=== PATIENT | male | born 1955 | race Caucasian/White ===

== ENCOUNTER 2017-10-25 09:14 | Outpatient (CLI) | payer MEDICAID, SELFPAY ==
[2017-10-25 10:17] LABS: HGB 15.2 g/dL (13.5-17.5); Mean Corp. HGB Concentration 35.3 g/dL (32.0-36.0); Mean Corpuscular Hemoglobin 31.3 pg (27.0-33.0); Mean Corpuscular Volume 88.5 fL (80-95); Mean Platelet Volume 10.1 fL (8.0-11.0); Platelet Count 195 x1000/uL (130-400); RBC 4.86 m/cumm (4.50-6.00); White Blood Cell Count 6.24 k/cumm (4.4-10.8)
[2017-10-25 11:21] LABS: Hemoglobin A1C 4.9 % (4.5-6.2)
[2017-10-25 11:30] LABS: ALT 36 U/L (12-78); AST 20 U/L (15-37); Albumin 4.1 g/dL (3.4-5.0); Alkaline Phosphatase 81 U/L (46-116); Anion Gap 7.9 mmol/L (3-11); BUN 14 mg/dL (7-18); Bilirubin, Total 0.7 mg/dL (0.2-1.0); CO2 26.1 mmol/L (21.0-32.0); CREATININE 0.99 mg/dL (0.70-1.30); Calcium 8.8 mg/dL (8.5-10.1); Chloride 105 mmol/L (98-107); Glucose 100 mg/dL (70-100); Potassium 4.7 mmol/L (3.5-5.1); Sodium 139 mmol/L (136-145); TSH (W/Ref FT4) 1.02 uIU/mL (0.358-3.74); Total Protein 6.9 g/dL (6.4-8.2); Vitamin B12 412 pg/mL (193-986)
[2017-10-26 13:07] LABS: Lyme Ab w Rflx to Lyme Confirm Negative
[2017-10-26 23:11] LABS: Anaplasma phagocytophilum Negative (Negative); B. miyamotoi PCR Negative (Negative); Babesia divergens/MO-1 Negative (Negative); Babesia duncani Negative (Negative); Babesia microti Negative (Negative); Ehrlichia chaffeensis Negative (Negative); Ehrlichia ewingii/canis Negative (Negative); Ehrlichia muris eauclairensis Negative (Negative)
== END 2017-10-25 09:34 ==
PROVIDERS: PCP Family Medicine; Visit Provider Family Medicine
DX: G72.9 Myopathy, unspecified (principal); R11.10 Vomiting, unspecified; G62.9 Polyneuropathy, unspecified
CPT/HCPCS: 36415; 80053; 85027; 82607; 83036; 84443; 86618; 87798

== ENCOUNTER 2018-10-29 10:55 | Outpatient (CLI) | payer MEDICAID, SELFPAY ==
--- NOTE | 2018-10-29 10:00 | DI.RAD_ITS ---
SYMPTOM/DIAGNOSIS: LT KNEE PAIN, M25.562 LEFT KNEE: Medial joint space narrowing is demonstrated. There are mild hypertrophic changes. There is no evidence of a joint effusion. There has been no significant interval change when compared with the prior study of 11/02/15. SUMMARY: Findings consistent with mild to moderate DJD, unchanged when compared with the previous examination.
== END 2018-10-29 11:15 ==
PROVIDERS: PCP Family Medicine; Visit Provider Family Medicine
DX: M25.562 Pain in left knee (principal); M17.12 Unilateral primary osteoarthritis, left knee
CPT/HCPCS: 73562

== ENCOUNTER 2018-10-30 00:58 | Outpatient (CLI) | payer MEDICAID, SELFPAY ==
--- NOTE | 2018-10-30 08:19 | DI.RAD_ITS ---
EXAM: XR CHEST 2V PA LATERAL CLINICAL HISTORY: cough. TECHNIQUE: 2D digital imaging was performed. COMPARISON: None. FINDINGS: LUNGS: Clear. No pleural abnormality seen. HEART: Normal. MEDIASTINUM: Normal. OTHER FINDINGS:Normal. IMPRESSION: No acute pulmonary findings.
== END 2018-10-30 01:18 ==
PROVIDERS: PCP Family Medicine; Visit Provider Family Medicine
DX: R05 Cough (principal)
CPT/HCPCS: 71046

== ENCOUNTER 2018-12-07 18:12 | Emergency (ER) | payer MEDICAID, SELFPAY ==
[2018-12-07] VITALS (8 sets, daily range): BP systolic 109–156; BP diastolic 62–94; PULSE 86–91; RESP 18–32; TEMP 36.6; O2SAT 96–99
[2018-12-07] MEDS: Normal Saline 1,000 ML 1000 ML IV (18:15)
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
[2018-12-07] MEDS: fentaNYL 100 MCG/2 ML VIAL IVP (18:27)
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
[2018-12-07] MEDS: ceFAZolin 2,000 MG in Normal Saline 100 ML 200 MG IVPB (18:32)
[2018-12-07 18:44] LABS: ALT 60 U/L (16-63); Alkaline Phosphatase 83 U/L (46-116); Anion Gap 10.1 mmol/L (3-11); BUN 14 mg/dL (7-18); Bilirubin, Total 0.6 mg/dL (0.2-1.0); CO2 26.9 mmol/L (21.0-32.0); CREATININE 1.05 mg/dL (0.70-1.30); Chloride 102 mmol/L (98-107); Magnesium 1.8 mg/dL (1.8-2.4); PTT Activated 30.3 sec (21.0-31.4); Potassium 3.8 mmol/L (3.5-5.1); Prothrombin Time 9.9 sec (9.3-11.0); Sodium 139 mmol/L (136-145); Total Protein 7.4 g/dL (6.4-8.2)
[2018-12-07 18:58] LABS: Abs Immature Grans 0.03 k/cumm (0.0-0.09); Absolute Basophil Count 0.03 k/cumm (0.0-0.2); Absolute Eosinophil Count 0.14 k/cumm (0.0-0.7); Absolute Neutrophil Count 5.31 k/cumm (1.2-6.7); Basophils % 0.3; Eosinophils % 1.5; HCT 42.7 % (40.0-50.0); HGB 15.5 g/dL (13.5-17.5); Immature Grans % 0.3; Lymphocytes % 32.6; Mean Corp. HGB Concentration 36.3 g/dL (32.0-36.0); Mean Corpuscular Hemoglobin 31.8 pg (27.0-33.0); Mean Corpuscular Volume 87.7 fL (80-95); Mean Platelet Volume 9.9 fL (8.0-11.0); Monocytes % 9.5; Neutrophils % 55.8; Platelet Count 256 x1000/uL (130-400); RBC 4.87 m/cumm (4.50-6.00); White Blood Cell Count 9.51 k/cumm (4.4-10.8)
[2018-12-07 19:01] LABS: Calcium 8.7 mg/dL (8.5-10.1); Glucose 105 mg/dL (70-100)
[2018-12-07] MEDS: fentaNYL 100 MCG/2 ML VIAL (19:36)
== END 2018-12-07 19:35 | disposition short-term general hospital (02) ==
LOC: ER 18:50
PROVIDERS: Emergency Provider Emergency Medicine; PCP Family Medicine
DX: S31.31XA Laceration without foreign body of scrotum and testes, initial encounter (principal); W34.09XA Accidental discharge from other specified firearms, initial encounter
CPT/HCPCS: 80053; 90471; 96361; 96365; 96375; 99285; 83735; 85025; 85610; 85730; 99284; J0690; J3010

== ENCOUNTER 2019-05-02 00:23 | Outpatient (CLI) | payer MEDICAID, SELFPAY ==
--- NOTE | 2019-05-02 08:15 | DI.US_ITS ---
EXAM: US ABDOMEN CLINICAL HISTORY: persistent nausea, gastritis, K29.70 TECHNIQUE: Ultrasound performed using standard protocol. COMPARISON: Cardiac from 12/15/2016 FINDINGS: Abdominal ultrasound was performed according to the usual protocol. The liver is enlarged and incomp letely visualized. There is increased echogenicity of the hepatic parenchyma consistent with hepatic steatosis and hepatic parenchyma is mildly heterogeneous without a focal mass as visualized. There is no evidence of cholelithiasis or biliary dilatation. Negative sonographic Torres sign. Gal lbladder wall not thickened. There is no evidence of biliary dilatation. Visualized portions of the pancreas appear intact. Spleen is unremarkable in appearance. Kidneys appear normal with no evidence of hydronephrosis or nephrolithiasis. Abdominal aorta and IVC are of normal diameter. IMPRESSION: Probable hepatic steatosis. No other significant findings. DATA REPOSITORY:
== END 2019-05-02 00:43 ==
PROVIDERS: PCP Family Medicine; Visit Provider Family Medicine
DX: K29.70 Gastritis, unspecified, without bleeding (principal); K76.0 Fatty (change of) liver, not elsewhere classified; R11.0 Nausea; R16.0 Hepatomegaly, not elsewhere classified
CPT/HCPCS: 76700

== ENCOUNTER 2019-12-04 00:49 | Outpatient (CLI) | payer MEDICAID, SELFPAY ==
--- NOTE | 2019-12-04 07:45 | DI.CTLCSR_ITS ---
EXAM: CT CHEST LUNG CANCER SCREEN CLINICAL HISTORY: Screening for lung cancer, FORMER SMOKER, Z12.2 TECHNIQUE: Imaging Protocol: Axial computed tomography images with coronal and sagittal reformatted images were created and reviewed COMPARISON: CR XR CHEST 2V PA LATERAL from 10/30/2018 FINDINGS: Tracheobronchial tree: Patent where visualized. Mediastinum and Maria Isabel: No dominant adenopathy or fluid collection. Pulmonary parenchyma: No consolidation or dominant measurable mass. Mild paraseptal emphysema.. Lung Nodules: 4 millimeter nodule peripheral left lung base. Other tiny scattered calcifications, ma inly in the left upper lobe... Pleura: No effusion or pneumothorax. Heart: The heart is not dilated. Moderate coronary artery calcifications are seen. Aorta: Thoracic aorta non-dilated.Minimal calcification Upper abdomen: Unremarkable. Bones: Mild degenerative changes in the thoracic spine. Soft Tissues: Unremarkable. IMPRESSION: 4 millimeter left lower lobe nodule. Lung RADS Cat 2 - Benign Appearance / Behavior: Nodules with a very low likelihood of becoming a clin ically active cancer due to size or lack of growth Lung-RADS 1.0 CATEGORIES: Category 0 - Prior chest CT exam(s) being located for comparison. Category 1 - Annual screening in 12 months. No nodules or definitely benign nodules. Category 2 - Annual screening in 12 months. Benign appearance. Nodules with low likelihood of becomin g active cancer. Category 3 - 6-month follow-up. Probably benign. Short-term follow-up suggested. Nodules with low lik elihood of becoming active cancer. Category 4A - 3-month follow-up and CT/PET if >8 mm in size. Suspicious finding. Findings which requi re additional testing. Category 4B - Findings which require additional testing and tissue sampling. Suspicious finding. C Added to Any of the Above - History of prior lung cancer screening. S Added to Any of the Above - Significant unexpected other finding. RADIATION DOSE DELIVERED: 80.62mGy.cm Total DLP DATA REPOSITORY: All CT scans at this facility are submitted to the National Radiology Data Registry (NRDR) Dose Index Registry (DIR) with the [employer] (ACR). RADIATION OPTIMIZATION: All CT scans at this facility use at least one of these dose optimization te chniques: automated exposure control; mA and/or kV adjustment per patient size (includes targeted exa ms where dose is matched to clinical indication); or iterative reconstruction.
== END 2019-12-04 01:09 ==
PROVIDERS: PCP Family Medicine; Visit Provider Family Medicine
DX: Z12.2 Encounter for screening for malignant neoplasm of respiratory organs (principal); Z87.891 Personal history of nicotine dependence; R91.1 Solitary pulmonary nodule
CPT/HCPCS: G0297

== ENCOUNTER 2019-12-04 02:59 | Outpatient (CLI) | payer MEDICAID, SELFPAY ==
[2019-12-04 09:20] LABS: Abs Immature Grans 0.02 10^3/uL (0.0-0.06); Absolute Basophil Count 0.03 10^3/uL (0.0-0.2); Absolute Eosinophil Count 0.11 10^3/uL (0.0-0.7); Absolute Monocyte Count 0.56 10^3/uL (0.1-0.8); Absolute Neutrophil Count 3.07 10^3/uL (1.2-6.7); Basophils % 0.6; HCT 42.5 % (40.0-50.0); HGB 15.2 g/dL (13.5-17.5); Immature Grans % 0.4; Lymphocytes % 29.7; MCHC 35.8 % (32.0-36.0); MCV 89.5 fL (80-95); MPV 9.6 fL (8.0-11.0); Monocytes % 10.4; Neutrophils % 56.9; Nucleated RBC 0 %; Platelet Count 208 10^3/uL (130-400); RBC 4.75 10^6/uL (4.36-5.78); RDW-SD 39.4 fL; WBC 5.39 10^3/uL (4.4-10.8)
[2019-12-04 10:11] LABS: ALT 45 U/L (16-63); AST 23 U/L (15-37); Albumin 4.2 g/dL (3.4-5.0); Alkaline Phosphatase 89 U/L (46-116); Anion Gap 8.5 mmol/L (3-11); BUN 10 mg/dL (7-18); CO2 26.5 mmol/L (21.0-32.0); CREATININE 0.77 mg/dL (0.70-1.30); Calcium 9.3 mg/dL (8.5-10.1); Chloride 103 mmol/L (98-107); Glucose 106 mg/dL (74-106); Lipase 116 U/L (73-393); Potassium 4.1 mmol/L (3.5-5.1); Sodium 138 mmol/L (136-145)
[2019-12-04 21:33] LABS: PSA, Screening 1.6 ng/mL (0.0-4.5)
[2019-12-05 10:30] LABS: Hepatitis C Ab w Rflx HCV PCR Negative (Negative)
== END 2019-12-04 03:19 ==
PROVIDERS: PCP Family Medicine; Visit Provider Family Medicine
DX: R11.0 Nausea (principal); Z11.59 Encounter for screening for other viral diseases; Z12.5 Encounter for screening for malignant neoplasm of prostate; Z00.00 Encounter for general adult medical examination without abnormal findings
CPT/HCPCS: 36415; 80053; 83690; 84153; 86803; 85025

== ENCOUNTER 2020-12-25 03:52 | Outpatient (CLI) | payer MEDICAID, SELFPAY ==
[2020-12-28 01:59] LABS: Anaplasma phagocytophilum Negative (Negative); B. miyamotoi PCR Negative (Negative); Babesia divergens/MO-1 Negative (Negative); Babesia duncani Negative (Negative); Babesia microti Negative (Negative); Ehrlichia chaffeensis Negative (Negative); Ehrlichia ewingii/canis Negative (Negative); Ehrlichia muris eauclairensis Negative (Negative)
[2020-12-28 08:07] LABS: PSA, Diagnostic 1.1 ng/mL (0.0-4.5)
[2020-12-28 10:23] LABS: Lyme Ab w Rflx to Lyme Confirm Negative (Negative)
== END 2020-12-25 03:53 | disposition home or self-care (01) ==
LOC: LBO 03:52
PROVIDERS: PCP Family Medicine; Visit Provider Family Medicine
DX: Z00.00 Encounter for general adult medical examination without abnormal findings (principal); W57.XXXA Bitten or stung by nonvenomous insect and other nonvenomous arthropods, initial encounter
CPT/HCPCS: 36415; 87798; 84153; 86618

== ENCOUNTER 2021-01-11 13:36 | Outpatient (REF) | payer MEDICAID, SELFPAY ==
[2021-01-11 14:47] LABS: Abs Immature Grans 0.02 10^3/uL (0.0-0.06); Absolute Basophil Count 0.04 10^3/uL (0.0-0.2); Absolute Eosinophil Count 0.13 10^3/uL (0.0-0.7); Absolute Lymphocyte Count 1.73 10^3/uL (1.2-3.4); Absolute Monocyte Count 0.68 10^3/uL (0.1-0.8); Absolute Neutrophil Count 4.19 10^3/uL (1.2-6.7); Basophils % 0.6; Eosinophils % 1.9; HCT 41.3 % (40.0-50.0); HGB 14.5 g/dL (13.5-17.5); Immature Grans % 0.3; Lymphocytes % 25.5; MCH 31.3 pg (27.0-33.0); MCHC 35.1 % (32.0-36.0); MCV 89.2 fL (80-95); MPV 10.3 fL (8.0-11.0); Neutrophils % 61.7; Nucleated RBC 0 %; Platelet Count 243 10^3/uL (130-400); RBC 4.63 10^6/uL (4.36-5.78); RDW-SD 39.2 fL; WBC 6.79 10^3/uL (4.4-10.8)
[2021-01-11 15:25] LABS: ALT 28 U/L (16-63); AST 14 U/L (15-37); Alkaline Phosphatase 84 U/L (46-116); Anion Gap 9.3 mmol/L (3-11); BUN 15 mg/dL (7-18); Bilirubin, Total 0.8 mg/dL (0.2-1.0); CO2 25.7 mmol/L (21.0-32.0); CREATININE 0.8 mg/dL (0.70-1.30); Calcium 8.7 mg/dL (8.5-10.1); Chloride 104 mmol/L (98-107); Ferritin 310 ng/mL (26-388); GGT 44 U/L (15-85); Glucose 119 mg/dL (74-106); Potassium 3.7 mmol/L (3.5-5.1); Sodium 139 mmol/L (136-145); Total Protein 6.9 g/dL (6.4-8.2)
== END 2021-01-11 13:37 | disposition home or self-care (01) ==
LOC: LBN 13:36
PROVIDERS: PCP Family Medicine; Visit Provider Surgery
DX: K44.9 Diaphragmatic hernia without obstruction or gangrene; R11.2 Nausea with vomiting, unspecified; K29.70 Gastritis, unspecified, without bleeding; D12.6 Benign neoplasm of colon, unspecified
CPT/HCPCS: 80053; 82728; 82977; 85025; 85610

== ENCOUNTER 2021-01-27 01:14 | Outpatient (CLI) | payer MEDICAID, SELFPAY ==
[2021-01-27 11:27] LABS: Source Nasal/Nares
[2021-01-27 14:02] LABS: COVID-19 PCR Negative (Negative)
== END 2021-01-27 01:15 | disposition home or self-care (01) ==
LOC: LBO 01:14
PROVIDERS: PCP Family Medicine; Visit Provider Surgery
DX: Z20.822 Contact with and (suspected) exposure to COVID-19 (principal)
CPT/HCPCS: 87635

== ENCOUNTER 2021-01-29 07:06 | Day surgery (SDC) | payer MEDICAID, SELFPAY ==
--- NOTE | 2021-01-28 22:19 | W.COLOREPORT ---
Colonoscopy Report Date of procedure: 01/29/21 Pre-op diagnosis general: chronic diarhhea Post-op diagnosis procedure note: other (polyps @20cm/few diverticula ) Procedure: cold bx cold polypectomy x2 Surgeon: Margaret Wills Anesthesia Type: General:No Airway Pathology: other Complications: None Disposition: same day Prep: Miralax/Dulcolax Retraction Time: 11 Procedure Description: After informed consent was obtained the patient was taken to the procedure room and placed in a left decubitous position. Monitors were applied and a time out was done. The patients name, date of , procedure, allergies to medications and metal in their body was reviewed. The patient was then sedated. Once sedated and comfortable a rectal exam was done. External exam was normal. Internal exam revealed a normal sphincter tone and no palpable masses. The scope was then introduced and retrofelexed. no internal hemorrhoids were identified. The scope was then advanced to the cecum w/out difficulty. The TI and appendiceal orifice were identified. The prep was poor-the cantrell of the colon are coated with liquid stool. I did attempt to lavaged with 2 L of saline. The stool was rather adherent.. The scope was then slowly retracted over 11 minutes back into the rectum. Random biopsies are taken in the cecum/90 cm/80 cm / 60 cm/50 cm / 30 cm and in the rectum. He has 2 polyps at 20 cm. These are both removed with a cold biting forcep. He has a few small scattered diverticuli throughout the entirety of the colon. They are very small and very few and insignificant disease. The scope was removed and the patient was woken up and taken back to Same day surgery in stable condition. The patient tolerated the procedure well and there were no immediate complications. Follow up: The patient should follow up in 5-7 days, unless they develop changes in bowel habits or other new gastrointestinal complaints.
--- NOTE | 2021-01-28 22:20 | PDOC.DSDIS_ITS ---
Discharge Plan Disposition Patient Disposition: HOME Condition: Good Discharge Details Attending Provider: Margaret Wills Primary Care Provider: Shahrzad Mendoza Home Meds and New Rx's Prescriptions: Continued omeprazole 40 mg capsule,delayed release(DR/EC) 40 mg PO DAILY Qty: 90 RF: 4 ondansetron HCl 8 mg tablet 8 mg PO Q8H PRN (Reason: nausea and vomiting) Qty: 20 RF: 8 Discontinued polyethylene glycol 3350 17 gram/dose powder 238 g PO ONCE Qty: 238 RF: 0 bisacodyl [Dulcolax (bisacodyl)] 5 mg tablet,delayed release (DR/EC) 5 mg PO ONCE Qty: 4 RF: 0 No Action carbidopa-levodopa 10-100 mg tablet,disintegrating RF: 0 Discharge Instructions Additional Instructions: DSU Colonoscopy Post- Op Instructions Instructions for Everyone who is given Anesthesia: For your safety, please do the following for the next twenty-four (24) hours: *Do Not operate a motor vehicle (car, truck, motorcycle, etc.) *Do Not drink alcoholic beverages or use any recreational drugs for the first 24 hours or while taking pain medications. The medications in your body may have a reaction that can be dangerous. *Do Not make any important decisions or sign any important papers. Findings:mild gastritis of stomach Continue with lifestyle modifications: no alcohol, tobacco products, Aspirin or NSAID's (ibuprofen, Motrin, Naprosyn, aleve, etc), soda pop/any carbonated beverages, caffeine (including tea & chocolate), and acidic foods, (tomatoes, citrus, onions, peppermints) spicy or fried/fatty foods. Do not lie down for 30 minutes after eating, and do not eat 2 hours prior to bedtime. Avoid wearing tight fitting clothing/ belts x2 colon polyps and diverticula Follow up: My office will send a letter in 2 to 3 weeks time with the biopsy results. 1. No lifting over 20 pounds or strenuous activity for the first 24 hours after your procedure. After 24 hours there are no restrictions on your activity but you may feel fatigued for a few days. 2. After you arrive home you may have a light meal and return to your normal diet as you can tolerate it without feeling sick to your stomach. 3. You may have a bloated, gaseous feeling in your belly (abdomen) after a colonoscopy. Passing gas and belching will help. Walking or lying down on your left side with your knees flexed may relieve the discomfort. Call the office at [phone] (Office) or [phone] (Hospital) right away if you notice any of the following: a.Vomiting of blood or ?coffee ground stools?. b.Rectal bleeding 1Tbsp, blood clots or continuous bleeding. c.Severe belly (abdominal) pain. d.A hard distended belly (abdomen) and an inability to pass gas. 4. Please don?t expect to have a normal BM (bowel movement) for 2-3 days after your procedure. 5. If there are questions regarding the findings of your procedure, please contact your doctor 6. If you are unable to contact your doctor with a problem, contact the hospital at [phone]. 7. Continue all your regular medications unless directed otherwise. I understand the above instructions and have no questions. Signature of Patient or Adult Escort Name of Responsible Adult Escort Signature of Nurse Date/Time Activity:: see above Diet:: see above Discharge Orders Discharge Orders: Discharge Order (Routine); Ordered 01/28/21 Ordered By: Margaret Wills DS: Diagnosis Discharge Diagnosis (1) Diarrhea: Status: Acute (2) Cannabinoid hyperemesis syndrome: Status: Acute (3) Nausea & vomiting: Status: Acute (4) Tubular adenoma of colon: Status: Chronic (5) History of tobacco use: Status: Chronic (6) Hiatal hernia: Status: Chronic
--- NOTE | 2021-01-28 22:23 | W.PM.ENDDOP ---
Date of service: 01/29/21 Endoscopy Report DATE OF PROCEDURE: 01/29/21 PRE-OP DIAGNOSIS: hyperemsis POST-OP DIAGNOSIS: other (midl gastritis ) SURGEON: Margaret Wills ANESTHESIA TYPE: General:No Airway COMPLICATIONS: None DISPOSITION: same day PROCEDURE DESCRIPTION: After informed consent was obtained the patient was take to the procedure room and placed in a supine position. Monitors were applied and a time out was done. The patients name, date of , procedure type, allergies to medications and metal in their body was reviewed. A bite block was placed and the patient was sedated. Once sedated and comfortable the gastroscope was advanced through the oropharynx which was grossly normal into the esophagus. The proximal and mid-esophagus were normal. In the distal esophagus there was no esophageal erosions/varices/diverticula/ulcers noted. The scope was advanced into the stomach and through the pylorus into the 3rd portion of the duodenum. The duodenum was noted to be normal. Biopsies were done all specimens are retrieved and no bleeding is noted no. The scope was retracted back into the stomach and biopsies were done to rule out H. pylori. There were ulcers. There is maybe some mild gastritis in the antrum and lower third of the stomach the scope was retroflexed. The cardia and fundus were noted to be normal. There no a hiatal hernia noted. The scope was retracted back into the esophagus and biopsies were done of the GE junction to rule out Roberts's. The Z line was regular. The scope was removed and the patient was woken up and taken back to [facility] in stable condition.
[2021-01-29 07:25] VITALS: BP 135/100; PULSE 87; RESP 18; TEMP 36.5; O2SAT 99
--- NOTE | 2021-01-29 07:29 | W.ANESPRE ---
General Info Date of Service Date Performed: 01/29/21 Height: 6 ft 1 in Weight: 106.651 kg Body Mass Index (BMI): 31.0 Surgical Procedure: Operation Date: 01/29/21 08:20 Proposed Procedures Side Surgeon p Colonoscopy/Gastroscopy Margaret Wills, Meds Allergies and Home Medications Allergies Allergy/AdvReac Type Severity Reaction Status Date / Time No Known Drug Allergies Allergy Unverified 01/28/21 13:40 Home Medication Medication Instructions Recorded omeprazole 40 mg capsule,delayed 40 mg PO DAILY #90 cap 12/21/20 release ondansetron HCl 8 mg tablet 8 mg PO Q8H PRN #20 tab 12/21/20 carbidopa-levodopa tab 01/29/21 Current Visit Medications: Current Medications Generic Name Dose Route Start Last Admin Trade Name Freq PRN Reason Stop Dose Admin Hyoscyamine Sulfate 0.125 mg 01/28/21 22:18 Hyoscyamine 0.125 Mg Sl/Oral/Chew SL DIRECTED PRN Ringer's Solution 1,000 mls @ 80 mls/hr 01/29/21 06:00 IV 02/27/21 23:59 [facility] IV Miscellaneous Supplies 1 each 01/29/21 06:00 Iv Access IV 02/27/21 23:59 DIRECTED SHIRA Ondansetron HCl 4 mg 01/28/21 22:18 Ondansetron 4 Mg/2 Ml Vial IVP Q4H PRN PRN Nausea / Vomiting Sodium Chloride 0 ml 01/29/21 06:00 Normal Saline Flush 10 Ml Syr IV 02/27/21 23:59 PRN PRN Sodium Chloride 0 ml 01/29/21 06:00 Normal Saline 10 Ml Vial IJ 02/27/21 23:59 DIRECTED PRN Sterile Water 0 ml 01/29/21 06:00 Water,Injection,Sterile 10 Ml Vial IJ 02/27/21 23:59 DIRECTED PRN PFSH Active Problems Active Problems: Problem Status Onset Code Diarrhea R19.7 Cannabinoid hyperemesis syndrome R11.2, F12.90 Nausea & vomiting R11.2 Tick bite W57.XXXA Nausea R11.0 Annual physical exam Z00.00 Pain in elbow M25.529 Smoker F17.200 Tubular adenoma of colon 11/18/13 D12.6 Restless leg syndrome 08/18/14 G25.81 Internal derangement of knee involving medial meniscus 09/29/15 M23.305 History of tobacco use Z87.891 Hiatal hernia 01/06/14 K44.9 Hemorrhoids 10/10/16 K64.9 Gastritis 01/06/14 K29.70 Depressive disorder F32.9 Anal fissure 01/11/17 K60.2 Actinic keratosis 04/17/12 L57.0 Medical History Medical History Actinic keratosis Alcohol abuse 12/day; quit 07/15; resumed Alcohol abuse Annual physical exam (10/10/16) Colon adenoma Cough 10/10/16 Depression OSCAR (dyspnea on exertion) OSCAR (dyspnea on exertion) 05/26/15 Duodenitis Dyspnea on exertion (05/26/15) Foot pain (01/13/04) R GREAT TOE PAIN; HALLUS RIGIDIS; S/P REPAIR R TOE W/ SCREWS. Gastritis Homicidal ideation 01/12/02 Penitentiary/probation x 1 yr. Homicidal ideation (01/12/02) Injury of toe on right foot repair of right toe w/hardware Pain in elbow tennis elbow Peptic ulcer disease Right upper quadrant abdominal pain 11/13 U/S Neg; HEP scan A/B/C neg Right upper quadrant pain Shoulder pain Smoker 2PPD Suicide and self-inflicted injury Suicide and self-inflicted injury by unspecified means x2 Surgical History Surgical History Colonoscopy - MAC 01/06/14 EGD - MAC 01/06/1404/27 H/O esophagogastroduodenoscopy 12/14/13 w/intestinal metaplasia History of esophagogastroduodenoscopy History of toe surgery Left knee surgery 11/2015 TOE SURGERY RIGHT Tobacco Smoking/Tobacco Use Status: Former Tobacco Use Tobacco: How many years used: 42 Passive smoking exposure: No Second hand exposure: No Alcohol Alcohol Intake: current Alcohol intake frequency: 0-2 drinks per day Alcohol type: beer Substance Use Substance use: Occasionally Substance use type: former substance user and marijuana Vital Signs and Lab Results Vital Signs Most Recent Vital Signs in EMR: Temp Pulse Resp BP Pulse Ox 36.5 C 87 18 135/100 H 99 01/29/21 07:25 12/17/21 07:25 01/29/21 07:25 01/29/21 07:25 01/29/21 07:25 Lab Results Blood Type / Crossmatch: No Data to Display Complete Blood Count: White Blood Count 6.79 10^3/uL (4.4-10.8) 01/11/21 12:08 01/11/21 Red Blood Count 4.63 10^6/uL (4.36-5.78) 01/11/21 12:08 01/11/21 Hemoglobin 14.5 g/dL (13.5-17.5) 01/11/21 12:08 01/11/21 Hematocrit 41.3 % (40.0-50.0) 01/11/21 12:08 01/11/21 Platelet Count 243 10^3/uL (130-400) 01/11/21 12:08 01/11/21 Complete Metabolic Panel: Sodium Level 139 mmol/L (136-145) 01/11/21 12:08 01/11/21 Potassium Level 3.7 mmol/L (3.5-5.1) 01/11/21 12:08 01/11/21 Chloride Level 104 mmol/L (98-107) 01/11/21 12:08 01/11/21 Carbon Dioxide Level 25.7 mmol/L (21.0-32.0) 01/11/21 12:08 01/11/21 Blood Urea Nitrogen 15 mg/dL (7-18) 01/11/21 12:08 01/11/21 Creatinine 0.8 mg/dL (0.70-1.30) 01/11/21 12:08 01/11/21 Estimated GFR/1.73 m2 >= 60.00 (mL/min/1.73m2) 01/11/21 12:08 01/11/21 Calcium Level 8.7 mg/dL (8.5-10.1) 01/11/21 12:08 01/11/21 Albumin 4.0 g/dL (3.4-5.0) 01/11/21 12:08 01/11/21 Glucose Level 119 mg/dL (74-106) H 01/11/21 12:08 01/11/21 Liver Function Panel: Alanine Aminotransferase (ALT/SGPT) 28 U/L (16-63) 01/11/21 12:08 01/11/21 Aspartate Amino Transf (AST/SGOT) 14 U/L (15-37) L 01/11/21 12:08 01/11/21 Gamma Glutamyl Transpeptidase 44 U/L (15-85) 01/11/21 12:08 01/11/21 Coagulation Panel: No Data to Display Cardiac Panel: No Data to Display Arterial Blood Gas: No Data to Display Venous Blood Gas: No Data to Display Pancreas Panel: No Data to Display Thyroid Panel: No Data to Display Infectious Disease: Coronavirus (COVID-19)(PCR) Negative (Negative) 01/27/21 09:20 01/27/21 Coronavirus 2019 Source Nasal/Nares 01/27/21 09:20 01/27/21 Blood Cultures: No Data to Display Toxicology Panel: No Data to Display Anesthesia Assessment and Plan Anesthesia History Personal History: No History of Anesthesia Complications Family History: No Family History of Anesthesia Complications Exercise Tolerance Exercise Tolerance: Metabolic Equivalents>4 Pertinent Negatives Pertinent Negatives: No Symptoms of GERD Cardiac & Pulmonary Exam Cardiac Exam: Normal S1/S2 Heart Sounds Pulmonary Exam: Clear Bilateral Breath Sounds Implantable Cardiac Device Does patient have a Pacemaker or an ICD?: No Airway Exam Known Difficult Airway: No Mallampati Class: 1 Mouth Opening: Normal (> 3cm) Thyromental Distance: Greater than 3 cm Neck Range of Motion: Full ROM Neck Circumference: Normal Teeth Condition: Normal Dentition ASA Classification ASA Score: ASA 2 Emergency Case?: No NPO Status NPO Status: NPO Clears >2 hours, Solids >8 hours Anesthesia Plan Resuscitation Status: Full Code Anesthesia Technique: General Anesthesia Airway Planned: Natural Airway Monitors Used: Standard Monitors
[2021-01-29] MEDS: Lactated Ringers 1,000 ML 80 ML IV (07:42)
[2021-01-29 08:09] VITALS: BMI 31.0
--- NOTE | 2021-01-29 08:29 | BOWEL_PTH ---
PATIENT: Brandyn Ace LOC: [facility] U#:[id number] AGE/SX: 65/M ROOM: RE01/29/[address]: Margaret Wills : 1955 BED: DIS: 01/29/2021 SPEC #: [id number] RECD: 01/29/21 12:51 STATUS: [facility] #: [id number] BRIANA: 01/29/21 08:[address]: Margaret Wills DEPT: Surgical Specimen RECD BY: Casandra Cordoba ENTERED: 01/29/21 12:55 SP TYPE: Bowel OTHR DR: Shahrzad Mendoza MD, DC Tissues: 1 - BIOPSY BOWEL 2 - BIOPSY BOWEL 3 - STOMACH BIOPSY 4 - STOMACH BIOPSY 5 - ESOPHAGUS BIOPSY 6 - ESOPHAGUS BIOPSY 7 - BIOPSY BOWEL 8 - BIOPSY BOWEL 9 - BIOPSY BOWEL 10 - BIOPSY BOWEL 11 - BIOPSY BOWEL 12 - BIOPSY BOWEL 13 - BIOPSY BOWEL 14 - BIOPSY BOWEL Procedures: GROSS AND MICRO LEVEL 4 Comments: [id number]
[2021-01-29 09:10] VITALS: BP 128/109; PULSE 65; RESP 20; TEMP 36.4; O2SAT 99
--- NOTE | 2021-01-29 09:15 | W.ANESPOSTOP ---
Postoperative Evaluation Date, Time and Location Date Performed: 01/29/21 Time Performed: 09:15 Patient Location: Day Surgery Unit Vital Signs Most Recent Imported Vital Signs: Most Recent Vital Signs Temp Pulse Resp BP Pulse Ox 36.5 C 87 18 135/100 H 99 01/29/21 07:25 01/29/21 07:25 01/29/21 07:25 01/29/21 07:25 01/29/21 07:25 Pain Score Most Recent Pain Score: Most Recent Pain Score Pain Level 0 01/29/21 07:25 Assessment Mental Status: Awake (Alert & Oriented to Patient Baseline) Airway and Respiratory Function: Patent airway with normal (patient baseline) respiratory exam Cardiovascular Function: Hemodynamically Stable Hydration Status: Adequately Hydrated Nausea & Vomiting: No Nausea or Vomiting Pain: Pain is Moderate or Severe (Crampy) Postoperative Pain Management: Pain being addressed with medication Peripheral Nerve Block: Patient did not receive a nerve block
[2021-01-29] MEDS: Hyoscyamine 0.125 MG SL/ORAL/CHEW SL (09:18)
[2021-01-29 09:40] VITALS: BP 115/72; PULSE 71; RESP 17; TEMP 36.9; O2SAT 98
== END 2021-01-29 10:15 | disposition home or self-care (01) ==
LOC: SUR 07:06
PROVIDERS: PCP Family Medicine; Visit Provider Surgery
PROC: (CPT 45380; principal; 2021-01-29 08:15)
DX: R19.7 Diarrhea, unspecified (principal); R11.2 Nausea with vomiting, unspecified; F12.90 Cannabis use, unspecified, uncomplicated; K29.70 Gastritis, unspecified, without bleeding; K63.5 Polyp of colon
CPT/HCPCS: 45380; 43239; 88305; J2704; J3490

== ENCOUNTER 2021-06-28 18:59 | Outpatient (REF) | payer MEDICAID, SELFPAY ==
[2021-06-30 11:15] LABS: COVID-19 RT-PCR UVMMC Result Negative (Negative)
== END 2021-06-28 19:00 | disposition home or self-care (01) ==
LOC: LBN 18:59
PROVIDERS: PCP Family Medicine; Visit Provider Family Medicine
DX: Z20.822 Contact with and (suspected) exposure to COVID-19 (principal)
CPT/HCPCS: U0003

== ENCOUNTER → 2022-01-13 02:09 | Outpatient (CLI) | payer MEDICAID, SELFPAY ==
--- NOTE | 2022-01-13 13:04 | DI.CTLCSR_ITS ---
Exam(s) CT CHEST LUNG CANCER SCREEN EXAM: CT CHEST LUNG CANCER SCREEN CLINICAL HISTORY: Screening for lung cancer,FORMER SMOKER, Z87.891 TECHNIQUE: CT examination of the chest was performed utilizing low-dose lung cancer screening protoc . COMPARISON: CT CT CHEST LUNG CANCER SCREEN from 12/04/2019 FINDINGS: Images obtained through the upper abdomen show unremarkable appearance of visualized portions of the liver and spleen. Note is made of coronary artery calcification. There is no mediastinal or hilar adenopathy. Mediastinal vascular structures appear intact by noncon trast criteria. Tracheobronchial tree appears intact. No pleural effusion or pleural-based mass. There are cysts central lobular and subpleural pulmonary emphysematous changes. There are a couple o f 4 millimeter left lower lobe intrapulmonary nodules, unchanged from prior examination of December 02. No significant new nodule identified.. IMPRESSION: Lung RADS Cat 2 - Benign Appearance / Behavior: Nodules with a very low likelihood of becoming a clin ically active cancer due to size or lack of growth Continue annual screening with LDCT in 12 months. Lung-RADS 1.0 CATEGORIES: Category 0 - Prior chest CT exam(s) being located for comparison. Category 1 - Annual screening in 12 months. No nodules or definitely benign nodules. Category 2 - Annual screening in 12 months. Benign appearance. Nodules with low likelihood of becomin g active cancer. Category 3 - 6-month follow-up. Probably benign. Short-term follow-up suggested. Nodules with low lik elihood of becoming active cancer. Category 4A - 3-month follow-up and CT/PET if >8 mm in size. Suspicious finding. Findings which requi re additional testing. Category 4B - Findings which require additional testing and tissue sampling. Suspicious finding. Category 4X - Category 3 or 4 nodules with additional features or imaging findings that increases the suspicion of malignancy. Modifier S- Potentially clinically significant finding. (Non lung cancer) RADIATION DOSE DELIVERED: 93.08mGy.cmTotal DLP !Error 2.21mGyCTDIvol 93.08mGy.cm Total DLP DATA REPOSITORY: All CT scans at this facility are submitted to the National Radiology Data Registry (NRDR) Dose Index Registry (DIR) with the [employer] (ACR). RADIATION OPTIMIZATION: All CT scans at this facility use at least one of these dose optimization te chniques: automated exposure control; mA and/or kV adjustment per patient size (includes targeted exa ms where dose is matched to clinical indication); or iterative reconstruction.
== END ==
PROVIDERS: PCP Family Medicine; Visit Provider Family Medicine
DX: Z87.891 Personal history of nicotine dependence (principal); Z12.2 Encounter for screening for malignant neoplasm of respiratory organs
CPT/HCPCS: 71271

== ENCOUNTER 2022-08-04 11:00 | Outpatient (CLI) | payer MEDICAID, SELFPAY ==
[2022-08-04 12:44] LABS: HCT 42.2 % (40.0-50.0); HGB 15.5 g/dL (13.5-17.5); MCH 31.2 pg (27.0-33.0); MCHC 36.7 % (32.0-36.0); MCV 85 fL (80-95); MPV 9.2 fL (8.0-11.0); Platelet Count 204 10^3/uL (130-400); RBC 4.97 10^6/uL (4.36-5.78); RDW 12.5 % (11.8-14.1); RDW-SD 38.2 fL; WBC 7.76 10^3/uL (4.4-10.8)
[2022-08-04 13:36] LABS: ALT 33 U/L (16-63); AST 17 U/L (15-37); Albumin 4.2 g/dL (3.4-5.0); Alkaline Phosphatase 78 U/L (46-116); Anion Gap 9.6 mmol/L (3-11); BUN 11 mg/dL (7-18); Bilirubin, Total 1.1 mg/dL (0.2-1.0); CO2 25.4 mmol/L (21.0-32.0); CREATININE 0.9 mg/dL (0.70-1.30); Calcium 9.1 mg/dL (8.5-10.1); Chloride 106 mmol/L (98-107); Estimated GFR 95.37 (mL/min/1.73m2); Glucose 96 mg/dL (74-106); Potassium 4.1 mmol/L (3.5-5.1); Sodium 141 mmol/L (136-145); TSH (W/Ref FT4) 1.57 uIU/mL (0.36-3.74); Total Protein 7.2 g/dL (6.4-8.2)
[2022-08-04 13:50] LABS: Calculated LDL 175 mg/dL (<100); Cholesterol 255 mg/dL (<200); HDL Cholesterol 39 mg/dL (40-60); Triglyceride 208 mg/dL (<150)
== END 2022-08-04 11:01 | disposition home or self-care (01) ==
LOC: LBO 11:01
PROVIDERS: PCP Family Medicine; Visit Provider Family Medicine
DX: R51.9 Headache, unspecified (principal)
CPT/HCPCS: 36415; 80053; 80061; 85027; 84443

== ENCOUNTER 2022-08-25 01:07 | Outpatient (CLI) | payer MEDICAID, SELFPAY ==
--- NOTE | 2022-08-25 11:06 | DI.CTLCSR_ITS ---
Exam(s) CT CHEST LUNG CANCER SCREEN EXAM: CT CHEST LUNG CANCER SCREEN CLINICAL HISTORY: Screening for lung cancer,CURRENT SMOKER, F17.210. TECHNIQUE: Imaging Protocol: Low Dose Technique CONTRAST MATERIAL: None COMPARISON: CT CT CHEST LUNG CANCER SCREEN from 01/13/2022 FINDINGS: CHEST: LUNGS: Tiny granulomas in the lung ramos are again noted. In addition, in the lateral aspect of the left lower lobe there are 2 unchanged nodules measuring up to 4 mm size, not increased in size from previous. There are no new nodules, new infiltrates, nor pleural effusions.. MEDIASTINUM: There is no obvious hilar nor mediastinal adenopathy. CARDIAC: Heart size is normal. There is no pericardial effusion.Caliber of the thoracic aorta is wit hin normal limits. OTHER: OSSEOUS: No significant osseous lesions.Fractures.. IMPRESSION: 1. Stable unchanged appearance of the previously described small left lung nodules. No new nodules n o pericardial effusions. 2. No obvious new intrathoracic adenopathy. 3. Lung RADS Cat 2 - Benign Appearance / Behavior: Nodules with a very low likelihood of becoming a c linically active cancer due to size or lack of growth Lung-RADS 1.0 CATEGORIES: Category 0 - Prior chest CT exam(s) being located for comparison. Category 1 - Annual screening in 12 months. No nodules or definitely benign nodules. Category 2 - Annual screening in 12 months. Benign appearance. Nodules with low likelihood of becomin g active cancer. Category 3 - 6-month follow-up. Probably benign. Short-term follow-up suggested. Nodules with low lik elihood of becoming active cancer. Category 4A - 3-month follow-up and CT/PET if >8 mm in size. Suspicious finding. Findings which requi re additional testing. Category 4B - Findings which require additional testing and tissue sampling. Category 4X - Category 3 or 4 nodules with additional features or imaging findings that increases the suspicion of malignancy. Modifier S- Potentially clinically significant findings (non lung cancer) RADIATION DOSE DELIVERED: 90.42mGy.cm Total DLP DATA REPOSITORY: All CT scans at this facility are submitted to the National Radiology Data Registry (NRDR) Dose Index Registry (DIR) with the [employer] (ACR). RADIATION OPTIMIZATION: All CT scans at this facility use at least one of these dose optimization te chniques: automated exposure control; mA and/or kV adjustment per patient size (includes targeted exa ms where dose is matched to clinical indication); or iterative reconstruction.
[2022-08-25] MEDS: Normal Saline - Diluent 50 ML VIAL IJ (11:17)
[2022-08-25] MEDS: Normal Saline Flush 10 ML SYR IJ (11:17)
[2022-08-25] MEDS: Omnipaque 350 MG/ML 500 ML BTL-Imaging package 100 ML IJ (11:18)
--- NOTE | 2022-08-25 11:19 | DI.CT_ITS ---
Exam(s) CT NECK W EXAM: CT NECK W INDICATION: persistent GUAMAN neck mass,R22.1. COMPARISON: CT CT HEAD WO from 08/25/2022 TECHNIQUE: FINDINGS: VISUALIZED PARANASAL SINUSES: Unremarkable. NASOPHARYNX: Unremarkable ORODENTAL: Unremarkable. OROPHARYNX: Unremarkable. No masses evident. HYPOPHARYNX: Unremarkable. Valleculae and epiglottis and aryepiglottic folds appear normal. VOCAL CORDS: Unremarkable. No masses evident. Subglottic airway appears unremarkable. THYROID GLAND: Unremarkable. Normal size and no obvious nodules. SALIVARY GLANDS: Unremarkable. No significant findings in the parotid and submandibular glands. LYMPH NODES: There is no adenopathy evident in the neck and supraclavicular regions. OTHER: There no evidence of mass subjacent to the metallic skin marker on the left side of the neck. VISUALIZED LUNG APICES: No significant findings. OSSEOUS: No fractures. No disc space narrowing. Advanced degenerative changes in the facet joints. IMPRESSION: 1. No evidence soft tissue neck mass. 2. No lymphadenopathy nor abnormal fluid collections in the neck. 3. No focal abnormality subjacent skin marker on the left side of the neck. RADIATION DOSE DELIVERED: Total DLP DATA REPOSITORY: All CT scans at this facility are submitted to the National Radiology Data Registry (NRDR) Dose Index Registry (DIR) with the [employer] (ACR). RADIATION OPTIMIZATION: All CT scans at this facility use at least one of these dose optimization te chniques: automated exposure control; mA and/or kV adjustment per patient size (includes targeted exa ms where dose is matched to clinical indication); or iterative reconstruction.
--- NOTE | 2022-08-25 11:20 | DI.CT_ITS ---
Exam(s) CT HEAD WO EXAM: CT HEAD WO CLINICAL HISTORY: persistent GUAMAN neck mass,R51.9. TECHNIQUE: Imaging Protocol: Axial computed tomography images with coronal and sagittal reformatted images were created and reviewed COMPARISON: No exams were available for comparison FINDINGS: There are no skull fractures. There is no fluid in the visualized paranasal sinuses. There is no evidence of intracranial hemorrhage, mass effect, or shift of midline structures. There are no extra-axial fluid collections. The ventricles are not enlarged or shifted and there is no blo od within the ventricular system nor within the basal cisterns. IMPRESSION: No acute intracranial findings on this noninfused CT scan of the brain. RADIATION DOSE DELIVERED: 1573.39 mGy.cm Total DLP DATA REPOSITORY: All CT scans at this facility are submitted to the National Radiology Data Registry (NRDR) Dose Index Registry (DIR) with the [employer] (ACR). RADIATION OPTIMIZATION: All CT scans at this facility use at least one of these dose optimization te chniques: automated exposure control; mA and/or kV adjustment per patient size (includes targeted exa ms where dose is matched to clinical indication); or iterative reconstruction.
== END 2022-08-25 01:27 ==
LOC: DI 01:07
PROVIDERS: PCP Family Medicine; Visit Provider Family Medicine
DX: R51.9 Headache, unspecified (principal); R22.1 Localized swelling, mass and lump, neck; F17.210 Nicotine dependence, cigarettes, uncomplicated; Z12.2 Encounter for screening for malignant neoplasm of respiratory organs; R91.8 Other nonspecific abnormal finding of lung field
CPT/HCPCS: 70491; 71271; 70450

== ENCOUNTER 2023-03-29 10:31 | Outpatient (CLI) | payer MEDICARE, MEDICAID, SELFPAY ==
[2023-03-29 09:57] LABS: Abs Immature Grans 0.01 10^3/uL (0.0-0.06); Absolute Basophil Count 0.05 10^3/uL (0.0-0.2); Absolute Eosinophil Count 0.08 10^3/uL (0.0-0.7); Absolute Lymphocyte Count 1.49 10^3/uL (1.2-3.4); Absolute Monocyte Count 0.51 10^3/uL (0.1-0.8); Basophils % 0.9; Eosinophils % 1.4; HCT 40.5 % (40.0-50.0); HGB 14.5 g/dL (13.5-17.5); Immature Grans % 0.2; Lymphocytes % 26.9; MCH 30.9 pg (27.0-33.0); MCHC 35.8 % (32.0-36.0); MCV 86 fL (80-95); MPV 9.9 fL (8.0-11.0); Monocytes % 9.2; Neutrophils % 61.4; Platelet Count 218 10^3/uL (130-400); RBC 4.69 10^6/uL (4.36-5.78); RDW 12.5 % (11.8-14.1); RDW-SD 39.3 fL; WBC 5.54 10^3/uL (4.4-10.8)
[2023-03-29 10:01] LABS: ESR 1 mm/hr (0-20)
[2023-03-29 10:54] LABS: ALT 40 U/L (16-63); AST 18 U/L (15-37); Alkaline Phosphatase 97 U/L (46-116); BUN 8 mg/dL (7-18); Bilirubin, Total 0.7 mg/dL (0.2-1.0); C-Reactive Protein < 0.50 mg/dL (<or=0.5); CREATININE 0.9 mg/dL (0.70-1.30); Calcium 9.1 mg/dL (8.5-10.1); Chloride 105 mmol/L (98-107); Estimated GFR 94.78 (mL/min/1.73m2); Glucose 99 mg/dL (74-106); Potassium 3.6 mmol/L (3.5-5.1); Sodium 142 mmol/L (136-145); TSH (W/Ref FT4) 1.27 uIU/mL (0.36-3.74); Total Protein 6.9 g/dL (6.4-8.2)
[2023-03-29 11:32] LABS: Vitamin B12 328 pg/mL (193-986)
== END 2023-03-29 10:32 | disposition home or self-care (01) ==
LOC: LBO 10:31
PROVIDERS: PCP Family Medicine; Visit Provider Family Medicine
DX: E03.9 Hypothyroidism, unspecified; I10 Essential (primary) hypertension; D64.9 Anemia, unspecified; R43.8 Other disturbances of smell and taste
CPT/HCPCS: 36415; 80053; 85652; 82607; 84443; 85025; 86140

== ENCOUNTER → 2023-04-06 00:26 | Outpatient (CLI) | payer MEDICARE, MEDICAID, SELFPAY ==
--- NOTE | 2023-04-06 07:30 | DI.MRI_ITS ---
Exam(s) MR BRAIN WO EXAM: MR BRAIN WO CLINICAL HISTORY: severe headache,r51.9 TECHNIQUE: Multiplanar multisequence MRI of the brain was performed. COMPARISON: CT CT NECK W from 08/25/[address] HEAD WO from 08/25/2022 FINDINGS: VENTRICLES AND EXTRA AXIAL SPACES: Normal in size and morphology for the patient's age. MIDLINE SHIFT: None. CEREBRAL PARENCHYMA: No focus of restricted diffusion to suggest acute infarct. No space-occupying le gracia identified. There are few scattered white matter foci on the FLAIR and T2 weighted images. HEMORRHAGE: None. BRAINSTEM/CEREBELLUM: Normal. CALVARIUM: Normal. VISUALIZED PARANASAL SINUSES/MASTOIDS:Clear. [place]: Normal flow void. PITUITARY GLAND: Unremarkable. OTHER FINDINGS: None. IMPRESSION: Few scattered white matter foci on the FLAIR and T2 weighted images. This may represent early small vessel ischemic disease but can be seen with headache/migraines and demyelinating processes. DATA REPOSITORY:
== END ==
PROVIDERS: PCP Family Medicine; Visit Provider Family Medicine
DX: R51.9 Headache, unspecified (principal)
CPT/HCPCS: 70551

== ENCOUNTER → 2023-06-23 00:10 | Outpatient (CLI) | payer MEDICARE, MEDICAID, SELFPAY ==
--- NOTE | 2023-06-23 10:42 | DI.CT_ITS ---
Exam(s) CT SINUS WO EXAM: CT SINUS WO CLINICAL HISTORY: sinus pain and drainage,J34.89. Evaluate for sinusitis. TECHNIQUE: Imaging Protocol: Axial computed tomography images with coronal and sagittal reformatted images were created and reviewed. COMPARISON: CT CT HEAD WO from 08/25/[address] NECK W from 08/25/2022 FINDINGS: Frontal sinuses: Normally aerated. Ethmoid air cells: Normally aerated. Maxillary sinuses: Small mucous retention cyst anteromedial corner of the right maxillary sinus. Lef t maxillary sinus is clear. Sphenoid sinus: Normally aerated. Ostiomeatal complexes: Patent. Nasal cavity: Septum is midline. Nasal cavity is clear. Visualized regional soft tissues: No acute findings. Orbits: Unremarkable. Bones: Unremarkable. Mastoid Air Cells: Normally aerated. Visualized portions of the brain: Unremarkable as visualized. IMPRESSION: Small mucous retention cyst right maxillary sinus. RADIATION DOSE DELIVERED: 120.56mGy.cm Total DLP DATA REPOSITORY: All CT scans at this facility are submitted to the National Radiology Data Registry (NRDR) Dose Index Registry (DIR) with the [employer] (ACR). RADIATION OPTIMIZATION: All CT scans at this facility use at least one of these dose optimization te chniques: automated exposure control; mA and/or kV adjustment per patient size (includes targeted exa ms where dose is matched to clinical indication); or iterative reconstruction.
== END ==
PROVIDERS: PCP Family Medicine; Visit Provider Family Medicine
DX: J34.89 Other specified disorders of nose and nasal sinuses (principal)
CPT/HCPCS: 70486

== ENCOUNTER → 2023-08-02 12:29 | Outpatient (BNVA) | payer MEDICARE, MEDICAID, SELFPAY | PROVIDERS: PCP Family Medicine; Referring Provider Family Medicine; Visit Provider Nurse Practitioner Adult Health | DX: G44.52 New daily persistent headache (NDPH) (principal) | CPT/HCPCS: 99215 ==

== ENCOUNTER 2023-08-07 19:48 | Outpatient (CLI) | payer MEDICARE, MEDICAID, SELFPAY ==
[2023-08-08 14:00] LABS: Lyme Ab w Rflx to Lyme Confirm Negative (Negative)
[2023-08-10 00:53] LABS: Anaplasma phagocytophilum Negative (Negative); B. miyamotoi PCR Negative (Negative); Babesia divergens/MO-1 Negative (Negative); Babesia duncani Negative (Negative); Babesia microti Negative (Negative); Ehrlichia chaffeensis Negative (Negative); Ehrlichia ewingii/canis Negative (Negative); Ehrlichia muris eauclairensis Negative (Negative)
== END 2023-08-07 19:49 | disposition home or self-care (01) ==
LOC: LBO 19:50
PROVIDERS: PCP Family Medicine; Visit Provider Family Medicine
DX: Z91.89 Other specified personal risk factors, not elsewhere classified (principal)
CPT/HCPCS: 36415; 87798; 86618

== ENCOUNTER 2023-09-21 07:45 | Emergency (ER) | payer MEDICARE, MEDICAID, SELFPAY ==
--- NOTE | 2023-09-21 09:15 | NUR.NOTE ---
Nursing Note: Pt seen during downtime- see downtime paperwork/charting
== END 2023-09-21 09:40 | disposition home or self-care (01) ==
LOC: ER 09:40
PROVIDERS: PCP Family Medicine
DX: L03.011 Cellulitis of right finger (principal); R22.31 Localized swelling, mass and lump, right upper limb; W22.8XXA Striking against or struck by other objects, initial encounter
CPT/HCPCS: 10060

== ENCOUNTER 2023-09-29 00:52 | Outpatient (CLI) | payer MEDICARE, MEDICAID, SELFPAY ==
--- NOTE | 2023-09-29 07:30 | DI.CTLCSR_ITS ---
Exam(s) CT CHEST LUNG CANCER SCREEN EXAM: CT CHEST LUNG CANCER SCREEN CLINICAL HISTORY: Screening for lung cancer,FORMER SMOKER, Z87.891 TECHNIQUE: Imaging Protocol: Axial computed tomography images with coronal and sagittal reformatted images were created and reviewed COMPARISON: CT CT CHEST LUNG CANCER SCREEN from 08/25/2022 FINDINGS: Tracheobronchial tree: Patent where visualized. No bronchiectasis. Pulmonary parenchyma: No consolidation or dominant measurable mass. Mild emphysematous changes are pr esent in the lungs. Lung Nodules: There is a stable 3 mm nodule in the left upper lobe (series 2, image 103). The 2 nodu les in the lateral aspect of the left lower lobe are stable. (Series 2, image 191 and 187). No new pulmonary nodules are present. Mediastinum and [place]: No dominant adenopathy or fluid collection. The esophagus is unremarkable. Thyroid gland: Unremarkable. Lymph nodes: Unremarkable. Pleura: No effusion or pneumothorax. Heart: The heart is not dilated. Coronary artery calcifications are present. No pericardial effusion . Aorta: Thoracic aorta non-dilated.Atherosclerotic calcification is present. Upper abdomen: Unremarkable. Soft Tissues: Unremarkable. Bones: Within normal limits. IMPRESSION: Stable pulmonary nodules. Lung RADS Cat 2 - Benign Appearance / Behavior: Nodules with a very low likelihood of becoming a clin ically active cancer due to size or lack of growth Lung-RADS 1.0 CATEGORIES: Category 0 - Prior chest CT exam(s) being located for comparison. Category 1 - Annual screening in 12 months. No nodules or definitely benign nodules. Category 2 - Annual screening in 12 months. Benign appearance. Nodules with low likelihood of becomin g active cancer. Category 3 - 6-month follow-up. Probably benign. Short-term follow-up suggested. Nodules with low lik elihood of becoming active cancer. Category 4A - 3-month follow-up and CT/PET if >8 mm in size. Suspicious finding. Findings which requi re additional testing. Category 4B - Findings which require additional testing and tissue sampling. Suspicious finding. Category 4X - Category 3 or 4 nodules with additional features or imaging findings that increases the suspicion of malignancy. Modifier S- Potentially clinically significant finding. (Non lung cancer) RADIATION DOSE DELIVERED: Total DLP Total DLP DATA REPOSITORY: All CT scans at this facility are submitted to the National Radiology Data Registry (NRDR) Dose Index Registry (DIR) with the [employer] (ACR). RADIATION OPTIMIZATION: All CT scans at this facility use at least one of these dose optimization te chniques: automated exposure control; mA and/or kV adjustment per patient size (includes targeted exa ms where dose is matched to clinical indication); or iterative reconstruction.
== END 2023-09-29 01:12 ==
LOC: DI 00:53
PROVIDERS: PCP Family Medicine; Visit Provider Family Medicine
DX: Z87.891 Personal history of nicotine dependence; Z12.2 Encounter for screening for malignant neoplasm of respiratory organs
CPT/HCPCS: 71271

== ENCOUNTER → 2023-10-03 09:00 | Outpatient (BNVA) | payer MEDICARE, MEDICAID, SELFPAY | PROVIDERS: PCP Family Medicine; Referring Provider Family Medicine; Visit Provider Surgery | DX: L03.011 Cellulitis of right finger (principal); L08.89 Other specified local infections of the skin and subcutaneous tissue | CPT/HCPCS: 99213 ==

== ENCOUNTER → 2023-10-04 12:25 | Outpatient (BNVA) | payer MEDICARE, MEDICAID, SELFPAY | PROVIDERS: PCP Family Medicine; Referring Provider Family Medicine; Visit Provider Nurse Practitioner Adult Health | DX: G44.52 New daily persistent headache (NDPH) (principal) | CPT/HCPCS: 99214 ==

== ENCOUNTER → 2023-12-06 12:15 | Outpatient (BNVA) | payer MEDICARE, MEDICAID, SELFPAY | PROVIDERS: PCP Family Medicine; Referring Provider Family Medicine; Visit Provider Nurse Practitioner Adult Health | DX: G44.52 New daily persistent headache (NDPH) (principal); G47.30 Sleep apnea, unspecified | CPT/HCPCS: 99213 ==

== ENCOUNTER 2024-03-13 03:17 | Outpatient (CLI) | payer MEDICARE, MEDICAID, SELFPAY ==
--- NOTE | 2024-03-13 07:15 | DI.US_ITS ---
Exam(s) US AAA SCREENING EXAM: US AAA SCREENING CLINICAL HISTORY: SCREENING FOR AAA,Z13.6,FORMER SMOKER COMPARISON: US US ABDOMEN from 05/02/2019 FINDINGS: Abdominal Aorta: Proximal: 2.3 x 1.9 cm Mid: 2.0 x 2.1 cm Distal: 2.0 x 2.1 cm Iliac's: Right: 1.4 x 1.3 cm Left: 1.4 x 1.2 cm There is atherosclerotic calcification. IMPRESSION: No evidence of abdominal aortic aneurysm. DATA REPOSITORY:
== END 2024-03-13 03:37 ==
LOC: DI 03:17
PROVIDERS: PCP Family Medicine; Visit Provider Family Medicine
DX: Z13.6 Encounter for screening for cardiovascular disorders (principal)
CPT/HCPCS: 76706

== ENCOUNTER → 2024-04-03 12:25 | Outpatient (BNVA) | payer MEDICARE, MEDICAID, SELFPAY | PROVIDERS: PCP Family Medicine; Referring Provider Family Medicine; Visit Provider Nurse Practitioner Adult Health | DX: G44.52 New daily persistent headache (NDPH) (principal) | CPT/HCPCS: 99214 ==

== ENCOUNTER 2024-09-03 12:54 | Outpatient (CLI) | payer MEDICARE, MEDICAID, SELFPAY ==
[2024-09-03 16:54] LABS: ESR 1 mm/hr (0-20)
[2024-09-03 16:55] LABS: HCT 42.5 % (40.0-50.0); HGB 15.3 g/dL (13.5-17.5); MCH 31.8 pg (27.0-33.0); MCHC 36.0 % (32.0-36.0); MCV 88 fL (80-95); MPV 9.7 fL (8.0-11.0); Platelet Count 210 10^3/uL (130-400); RBC 4.81 10^6/uL (4.36-5.78); RDW 12.6 % (11.8-14.1); RDW-SD 41.1 fL; WBC 7.92 10^3/uL (4.4-10.8)
[2024-09-03 17:49] LABS: ALT 31 U/L (16-63); AST 16 U/L (15-37); Albumin 4.1 g/dL (3.4-5.0); Alkaline Phosphatase 83 U/L (46-116); Anion Gap 9.4 mmol/L (3-11); BUN 11 mg/dL (7-18); Bilirubin, Total 0.9 mg/dL (0.2-1.0); CO2 25.6 mmol/L (21.0-32.0); Calcium 9.1 mg/dL (8.5-10.1); Chloride 105 mmol/L (98-107); Estimated GFR 97.61 (mL/min/1.73m2); Glucose 105 mg/dL (74-106); Potassium 3.9 mmol/L (3.5-5.1); Sodium 140 mmol/L (136-145); TSH (W/Ref FT4) 0.92 uIU/mL (0.36-3.74); Total Protein 6.6 g/dL (6.4-8.2)
== END 2024-09-03 12:55 | disposition home or self-care (01) ==
LOC: LBO 12:55
PROVIDERS: PCP Family Medicine; Visit Provider Family Medicine
DX: R51.9 Headache, unspecified (principal); R93.89 Abnormal findings on diagnostic imaging of other specified body structures; I10 Essential (primary) hypertension; E03.9 Hypothyroidism, unspecified
CPT/HCPCS: 36415; 80053; 85027; 85652; 84443

== ENCOUNTER 2024-09-30 02:32 | Outpatient (CLI) | payer MEDICARE, MEDICAID, SELFPAY ==
--- NOTE | 2024-09-30 06:45 | DI.CTLCSR_ITS ---
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 TECHNIQUE: Imaging Protocol: Low Dose Technique CONTRAST MATERIAL: None COMPARISON: CT CT CHEST LUNG CANCER SCREEN from 09/29/2023 FINDINGS: CHEST: LUNGS: There are no new ominous pulmonary nodules. The previously described small nodules in the left lung are again noted. Some of these are small calcified granulomas. The other is are small noncalcified nodules, 1 in the upper lobe and 2 in the left lower lobe and these again appear unchanged. No new findings in the opposite-right lung. No infiltrates in either lung.. No pleural effusions. MEDIASTINUM: There is no obvious hilar nor mediastinal adenopathy. CARDIAC: Heart size is normal. There is no pericardial effusion.Caliber of the thoracic aorta is within normal limits. OTHER: No obvious adrenal masses. OSSEOUS: No significant osseous lesions.. IMPRESSION: 1. Stable benign-appearing left lung nodules. 2. No new nodules nor infiltrates nor pleural effusions. 3. Lung RADS Cat 2 - Benign Appearance / Behavior: Nodules with a very low likelihood of becoming a clinically active cancer due to size or lack of growth Lung-RADS 1.0 CATEGORIES: Category 0 - Prior chest CT exam(s) being located for comparison. Category 1 - Annual screening in 12 months. No nodules or definitely benign nodules. Category 2 - Annual screening in 12 months. Benign appearance. Nodules with low likelihood of becoming active cancer. Category 3 - 6-month follow-up. Probably benign. Short-term follow-up suggested. Nodules with low likelihood of becoming active cancer. Category 4A - 3-month follow-up and CT/PET if >8 mm in size. Suspicious finding. Findings which require additional testing. Category 4B - Findings which require additional testing and tissue sampling. Category 4X - Category 3 or 4 nodules with additional features or imaging findings that increases the suspicion of malignancy. Modifier S- Potentially clinically significant findings (non lung cancer) RADIATION DOSE DELIVERED: 98.53mGy.cm Total DLP DATA REPOSITORY: All CT scans at this facility are submitted to the National Radiology Data Registry (NRDR) Dose Index Registry (DIR) with the [employer] ([employer]). RADIATION OPTIMIZATION: All CT scans at this facility use at least one of these dose optimization techniques: automated exposure control; mA and/or kV adjustment per patient size (includes targeted exams where dose is matched to clinical indication); or iterative reconstruction.
--- NOTE | 2024-09-30 06:45 | DI.MRI_ITS ---
Exam(s) MR BRAIN WO EXAM: MR BRAIN WO CLINICAL HISTORY: demyelinating ds vs other white matter changes,f/u abnl mri, r93.89 TECHNIQUE: Multiplanar multisequence MRI of the brain was performed. COMPARISON: MR MR BRAIN WO from 04/06/2023 FINDINGS: CEREBRAL PARENCHYMA: There is no evidence of intracranial hemorrhage, mass effect, or shift of midline structures. There are no extra-axial fluid collections. Ventricles are not enlarged or shifted. There is no significant focal signal abnormality in the cerebellar hemispheres nor within the mansoor, midbrain, and thalami. There is no abnormal signal abnormality in the periventricular white matter. The previously described scattered foci of FLAIR bright signal abnormality are unchanged in size and number. There are no new foci of signal abnormality in the brain PITUITARY GLAND: No mass nor parasellar abnormality. No obvious abnormality in the cavernous sinuses. FLOW VOIDS: The expected flow void are noted. No evidence of obvious aneurysm nor obvious vascular malformation. PARANASAL SINUSES: The visualized paranasal sinuses appear unremarkable. No obvious finding ORBITS: No obvious findings. IMPRESSION: No significant change compared to the prior MRI scan of 04/06/2023 DATA REPOSITORY:
== END 2024-09-30 02:52 ==
LOC: DI 02:32
PROVIDERS: PCP Family Medicine; Visit Provider Family Medicine
DX: R93.89 Abnormal findings on diagnostic imaging of other specified body structures (principal); Z12.2 Encounter for screening for malignant neoplasm of respiratory organs; F17.211 Nicotine dependence, cigarettes, in remission
CPT/HCPCS: 71271; 70551